=== PATIENT | female | born 1970 | race Caucasian/White ===

== ENCOUNTER 2018-04-28 09:23 | Emergency (ER) | payer MEDICAID ==
--- NOTE | 2018-04-28 10:06 | EDM.PDOC ---
ED HPI GENERAL MEDICAL PROBLEM - General Chief Complaint: Chest Pain Stated Complaint: CHEST PAIN Time Seen by Provider: 04/28/18 09:55 Source of Information: Reports: Patient, RN History Limitations: Reports: No Limitations - History of Present Illness INITIAL COMMENTS - FREE TEXT/NARRATIVE: 47 yr female presents with midsternal chest pain, that started around 630am, awoke with this pain and wasn't doing anything when the pain started. States pain is 5/10 this am and now. States no radiating pain and no shortness of breath with this. States some family history of heart disease. Dad had SD, is and had CHF, and Mom had SD and is still living. States she does smoke about 1 ppd for about 23 years. States she smokes too much. She does take Metoprolol bid for hypertension. States no problems with cholesterol. Left Anterior Chest Pain Score (Numeric/FACES): 4 - Related Data Allergies Allergy/AdvReac Type Severity Reaction Status Date / Time No Known Allergies Allergy Verified 04/12/15 19:49 Home Meds: Home Meds Metoprolol Tartrate [Lopressor] 50 mg PO Q12HR 06/02/15 [History] Lisinopril 5 mg PO DAILY 30 Days #30 tablet 04/28/18 [Rx] Past Medical History HEENT History: Reports: Head Other HEENT History: Patient states her head feels full and states her face is tingly. Cardiovascular History: Reports: Hypertension Genitourinary History: Reports: Other (See Below) Other Genitourinary History: kidney Stones BOOM STICK MAN History: Reports: , Other (See Below) Other BOOM STICK MAN History: 1 vaginal and 1 Dermatologic History: Reports: Other (See Below) Other Dermatologic History: rash arm and stomach - Infectious Disease History Infectious Disease History: Reports: Chicken Pox - Past Surgical History Female Surgical History: Reports: Section, Oophorectomy Social & Family History - Family History Family Medical History: Noncontributory Cardiac: Reports: AICD, Hypertension, SD ED ROS GENERAL - Review of Systems Review Of Systems: See Below Constitutional: Denies: Fever, Decreased Appetite HEENT: Reports: No Symptoms Respiratory: Reports: No Symptoms Cardiovascular: Reports: Chest Pain, Blood Pressure Problem. Denies: Edema GI/Abdominal: Denies: Abdominal Pain, Diarrhea, Nausea : Denies: Dysuria, Frequency Musculoskeletal: Reports: No Symptoms Skin: Reports: No Symptoms Neurological: Reports: No Symptoms Psychiatric: Reports: No Symptoms ED EXAM, GENERAL - Physical Exam Exam: See Below Exam Limited By: No Limitations General Appearance: Alert, No Apparent Distress Ears: Normal External Exam, Hearing Grossly Normal Nose: Normal Inspection, Normal Mucosa Throat/Mouth: Normal Inspection, Normal Lips, Normal Voice, No Airway Compromise Head: Atraumatic, Normocephalic Neck: Normal Inspection, Supple, Non-Tender Respiratory/Chest: No Respiratory Distress, Lungs Clear, Normal Breath Sounds Cardiovascular: Normal Peripheral Pulses, Regular Rate, Rhythm, No Edema GI/Abdominal: Normal Bowel Sounds, Soft, Non-Tender Extremities: Normal Inspection, Non-Tender, No Pedal Edema, Normal Capillary Refill Neurological: Alert, Oriented, Normal Cognition Psychiatric: Normal Affect, Normal Mood Skin Exam: Warm, Intact, Normal Color Lymphatic: No Adenopathy EKG INTERPRETATION EKG Date: 04/28/18 Time: 09:33 Rhythm: NSR Comparison: NA - No Prior EKG Course - Vital Signs Last Recorded V/S: Last Vital Signs Temp 98 F 04/28/18 09:50 Pulse 72 04/28/18 10:15 Resp 16 04/28/18 09:50 BP 152/92 H 04/28/18 10:19 Pulse Ox 100 04/28/18 09:50 - Orders/Labs/Meds Orders: Active Orders 24 hr Category Date Time Status Cardiac Monitoring [RC] .As Directed Care 04/28/18 09:39 Active EKG Documentation Completion [RC] ASDIRECTED Care 04/28/18 09:38 Active Nitroglycerin [Nitrostat] Med 04/28/18 10:11 Active 0.4 mg SL Q5M PRN Medication Orders Nitroglycerin (Nitrostat) 0.4 mg SL Q5M PRN PRN Reason: Chest Pain Stop: 04/29/18 10:11 Last Admin: 04/28/18 10:19 Dose: 0.4 mg Labs: Laboratory Tests 04/28/18 04/28/18 04/28/18 Range/Units 09:45 09:46 09:46 WBC 9.8 Cancelled (4.0-11.0) K/uL Sodium 142 (136-145) mmol/L Potassium 4.4 (3.5-5.1) mmol/L Chloride 104 (98-107) mmol/L Carbon Dioxide 26.2 (21.0-32.0) mmol/L Anion Gap 16.2 H (5.0-15.0) mmol/L BUN 12 (8-26) mg/dL Creatinine 0.86 (0.55-1.02) mg/dL Est Cr Clr Drug Dosing TNP Estimated GFR (MDRD) > 60 (>60) MLS/MIN BUN/Creatinine Ratio 14.0 (6-25) Glucose 112 H (74-100) mg/dL Calcium 9.0 (8.5-10.1) mg/dL Total Bilirubin 0.5 (0.0-1.0) mg/dL AST 82 H (15-37) U/L ALT 107 H (12-78) U/L Alkaline Phosphatase 97 (46-116) U/L Troponin I < 0.017 (0.000-0.060) ng/mL Total Protein 7.4 (6.4-8.2) g/dL Albumin 3.5 (3.4-5.0) g/dL Globulin 3.9 (2.2-4.2) g/dL Albumin/Globulin Ratio 0.9 (0.8-2.0) Meds: Medications Generic Name Dose Route Start Last Admin Trade Name Freq PRN Reason Stop Dose Admin Nitroglycerin 0.4 mg 04/28/18 10:11 04/28/18 10:19 Nitrostat SL 04/29/18 10:11 0.4 mg Q5M PRN Administration Chest Pain Discontinued Medications Generic Name Dose Route Start Last Admin Trade Name Freq PRN Reason Stop Dose Admin Aspirin 324 mg 04/28/18 10:11 04/28/18 10:12 Aspirin PO 04/28/18 10:12 324 mg ONETIME ONE Administration - Re-Assessments/Exams Free Text/Narrative Re-Assessment/Exam: 04/28/18 10:18 ASA given and Nitro 1 tab sl under tongue given. States chest pain has improved. BP improved 150/90 and heart rate is 70's, NSR. States she did start feeling different with the nitro, but symptoms better now. 04/28/18 10:56 States no pain to chest anymore. States her mom has been encouraging her to go to a director of professional services to have things checked out with her family history. Reviewed labs and EKG with pt and sister. Troponins are negative today. Chest pain may be related to costochondritis. Since the pain is relieved with nitro. Will send her home with the nitro and will start ASA 81 mg po daily. Will start Rx for Lisinopril 5 mg po daily. Recommend RTC next week for follow-up. Departure - Departure Time of Disposition: 11:02 Disposition: Home, Self-Care 01 Condition: Good Clinical Impression: Atypical chest pain Prescriptions: Lisinopril 5 mg PO DAILY 30 Days #30 tablet Instructions: Coping with Quitting Smoking, Nonspecific Chest Pain, Easy-to- Read, Lisinopril tablets Referrals: PCP,Unknown [Primary Care Provider] - Forms: ED Department Discharge Care Plan Goals: Make an appointment for next week with Leeann. Keep track of blood pressure. Try to get a blood pressure cuff. Start 1 baby aspirin daily. - My Orders Last 24 Hours: My Active Orders 04/28/18 09:38 EKG Documentation Completion [RC] ASDIRECTED 04/28/18 09:39 Cardiac Monitoring [RC] .As Directed 04/28/18 10:11 Nitroglycerin [Nitrostat] 0.4 mg SL Q5M PRN - Assessment/Plan Last 24 Hours: My Active Orders 04/28/18 09:38 EKG Documentation Completion [RC] ASDIRECTED 04/28/18 09:39 Cardiac Monitoring [RC] .As Directed 04/28/18 10:11 Nitroglycerin [Nitrostat] 0.4 mg SL Q5M PRN Plan: Troponins are negative today. Chest pain may be related to costochondritis. Since the pain is relieved with nitro. Will send her home with the nitro and will start ASA 81 mg po daily. Will start Rx for Lisinopril 5 mg po daily. Recommend RTC next week for follow-up.
[2018-04-28] MEDS ORDERED: Aspirin 81 MG Tab.Chew PO ONE (10:11)
[2018-04-28] MEDS ORDERED: Nitroglycerin 0.4 MG Tab.SL SL PRN (10:11)
[2018-04-28 10:20] VITALS: BP 152/92
== END 2018-04-28 11:00 | disposition home or self-care (01) ==
LOC: LB.ED 09:23
DX: R07.89 Other chest pain (principal); Z79.899 Other long term (current) drug therapy
CPT/HCPCS: 36415; 80053; 84484; 93005; 99285-25; A9270-GY

== ENCOUNTER 2019-04-24 16:45 | Emergency (ER) | payer MEDICAID ==
--- NOTE | 2019-04-24 16:57 | EDM.PDOC ---
ED HPI GENERAL MEDICAL PROBLEM - General Chief Complaint: Chest Pain Stated Complaint: CHEST PAIN Time Seen by Provider: 04/24/19 16:46 Source of Information: Reports: Patient History Limitations: Reports: No Limitations - History of Present Illness INITIAL COMMENTS - FREE TEXT/NARRATIVE: Grecia presents with her usual flare of chest "heaviness". She has had these episodes for years, and review of her chart, reveals normal imaging-based stress study, CXR, and many unremarkable cardiac rule outs in the ER. She cannot identify a specific provoking factor. Tonight, she had her discomfort for awhile, and ultimately presented due to wanting to rule out a stemi. She was reassured about the normal EKG. She actually contemplated about staying for labs. She did acknowledge ongoing GERD sx's, and admitted to often not taking her ppi due to the large capsule size. She denies dyspnea, diaphoresis, nausea, or recent illness. No pleuritic or other exacerbation. Not positional. She does localize deep beneath the sternum without radiation or migration. She clearly feels that the gi cocktail helped almost completely alleviate her sx's. - Related Data Allergies Allergy/AdvReac Type Severity Reaction Status Date / Time No Known Allergies Allergy Verified 04/24/19 16:52 Home Meds: Home Meds Metoprolol Tartrate [Lopressor] 100 mg PO Q12HR 06/02/15 [History] Aspirin 81 mg PO DAILY 04/28/18 [History] Omeprazole 40 mg PO DAILY 06/03/18 [History] Past Medical History HEENT History: Reports: Head Other HEENT History: Patient states her head feels full and states her face is tingly. Cardiovascular History: Reports: Hypertension Other Respiratory History: chest x ray 1 month ago but states they did not find anything Genitourinary History: Reports: Other (See Below) Other Genitourinary History: kidney Stones VALET History: Reports: , Other (See Below) Other VALET History: 1 vaginal and 1 Dermatologic History: Reports: Other (See Below) Other Dermatologic History: rash arm and stomach - Infectious Disease History Infectious Disease History: Reports: Chicken Pox - Past Surgical History Female Surgical History: Reports: Section, Oophorectomy Social & Family History - Family History Family Medical History: Noncontributory Cardiac: Reports: AICD, Hypertension, [place] - Caffeine Use Caffeine Use: Reports: Coffee, Soda ED ROS GENERAL - Review of Systems Review Of Systems: Comprehensive ROS is negative, except as noted in HPI. ED EXAM, GENERAL - Physical Exam Exam: See Below Exam Limited By: No Limitations General Appearance: Alert, WD/WN, No Apparent Distress Ears: Normal External Exam, Hearing Grossly Normal Throat/Mouth: Normal Inspection, Normal Voice, No Airway Compromise Head: Atraumatic, Normocephalic Neck: Normal Inspection, Supple, Non-Tender, Full Range of Motion Respiratory/Chest: No Respiratory Distress, Lungs Clear, Normal Breath Sounds, Chest Non-Tender Cardiovascular: Regular Rate, Rhythm, No Gallop, No Murmur, No Rub GI/Abdominal: Normal Bowel Sounds, Soft, Non-Tender Extremities: Normal Inspection, Normal Range of Motion, Non-Tender, No Pedal Edema, Normal Capillary Refill Neurological: Alert, Oriented, Normal Cognition, Normal Gait, No Motor/Sensory Deficits Psychiatric: Normal Affect, Normal Mood Skin Exam: Warm, Dry, Intact, No Rash Lymphatic: No Adenopathy Course - Vital Signs Text/Narrative:: The more we spoke, both Grecia and I felt more confident in as esophageal etiology of her pain. We decided together that repeating her troponin would be low yield. Certainly she will come back and/or see her doctor with any concerns. Imaging was felt to unlikely be helpful and we decided to hold off given normal CXR in the last couple of years. NEgative D-dimer helped exclude dissection, and as she is low risk for thromboembolism, this seemed adequate in terms of her w/u. Having said this, I did mention the possibility of gallbladder dysfunction presenting this way. She felt fine about an outpatient trial of acid reduction and was at acceptable risk for outpatient management. Transaminases with mild elevation and improved from previous and most likely related to fatty infiltration of her liver. She will follow up on this with her doctor. After she left, I noticed her dbp of 117 and I think this is most likely an error, as her past vitals trend more unremarkably. Last Recorded V/S: Last Vital Signs Temp 98.4 F 04/24/19 17:11 Pulse 74 04/24/19 17:43 Resp 18 04/24/19 17:43 BP 160/72 H 04/24/19 17:43 Pulse Ox 99 04/24/19 17:43 - Orders/Labs/Meds Orders: Active Orders 24 hr Category Date Time Status EKG Documentation Completion [RC] ASDIRECTED Care 04/24/19 16:48 Active EKG Documentation Completion [RC] ASDIRECTED Care 04/24/19 16:54 Active CBC WITH AUTO DIFF [HEME] Stat Lab 04/24/19 16:54 Ordered Labs: Laboratory Tests 04/24/19 04/24/19 Range/Units 16:54 16:55 D-Dimer, Quantitative < 100 (0-400) ng/mL Sodium 138 (136-145) mmol/L Potassium 3.5 D (3.5-5.1) mmol/L Chloride 101 (98-107) mmol/L Carbon Dioxide 24.4 (21.0-32.0) mmol/L Anion Gap 16.1 H (5.0-15.0) mmol/L BUN 15 D (8-26) mg/dL Creatinine 0.72 (0.55-1.02) mg/dL Est Cr Clr Drug Dosing 124.50 mL/min Estimated GFR (MDRD) > 60 (>60) MLS/MIN BUN/Creatinine Ratio 20.8 (6-25) Glucose 97 (74-100) mg/dL Calcium 8.8 (8.5-10.1) mg/dL Total Bilirubin 0.4 (0.0-1.0) mg/dL AST 66 H (15-37) U/L ALT 99 H (12-78) U/L Alkaline Phosphatase 90 (46-116) U/L Troponin I < 0.017 (0.000-0.060) ng/mL Total Protein 7.3 (6.4-8.2) g/dL Albumin 3.6 (3.4-5.0) g/dL Globulin 3.7 (2.2-4.2) g/dL Albumin/Globulin Ratio 1.0 (0.8-2.0) Departure - Departure Time of Disposition: 18:00 Disposition: Home, Self-Care 01 Condition: Good Clinical Impression: Esophageal spasm Instructions: Esophageal Spasm, Nonspecific Chest Pain, [id number] Forms: ED Department Discharge Additional Instructions: Thank for your time this evening. In review of your chart, you have had a very reassuring and complete work up in terms of ruling out heart disease as a cause of your discomfort. I think it would be far more likely that your esophagus is the culprit. It doesn't take much in terms of acid refluxing from the stomach to activate the extensive nerve network that wraps the esophagus, and this can cause referred pain everywhere in your chest. For now, I recommend taking the omeprazole daily for at least a week, and maybe trying some tums or other antacids if you get another flare. As always, don't hesitate to come back if things aren't right, otherwise follow up with your doctor. Sincerely, Gopal Nam MD Sepsis Event Note - Focused Exam Vital Signs: Vital Signs Temp Pulse Resp BP Pulse Ox 04/24/19 17:43 74 18 160/72 H 99 04/24/19 17:11 98.4 F 79 18 141/51 H 100 04/24/19 16:45 87 20 181/117 H 100 Date Exam was Performed: 04/24/19 Time Exam was Performed: 18:19 - My Orders Last 24 Hours: My Active Orders 04/24/19 16:48 EKG Documentation Completion [RC] ASDIRECTED 04/24/19 16:54 EKG Documentation Completion [RC] ASDIRECTED CBC WITH AUTO DIFF [HEME] Stat - Assessment/Plan Last 24 Hours: My Active Orders 04/24/19 16:48 EKG Documentation Completion [RC] ASDIRECTED 04/24/19 16:54 EKG Documentation Completion [RC] ASDIRECTED CBC WITH AUTO DIFF [HEME] Stat
[2019-04-24 17:43] VITALS: BP 160/72; PULSE 74
[2019-04-24] MEDS ORDERED: GI Cocktail Oral Solution 30 ML PO ONE (18:24)
== END 2019-04-24 18:37 | disposition home or self-care (01) ==
LOC: LB.ED 16:45
DX: K22.4 Dyskinesia of esophagus (principal); Z79.82 Long term (current) use of aspirin
CPT/HCPCS: 36415; 80053; 84484; 85025; 85379; 93005; 99283; 99285-25; A9270-GY